=== PATIENT | female | born 1990 | race Caucasian/White ===

== ENCOUNTER → 2024-03-01 10:41 | Outpatient (REF) | payer BC, SELFPAY | LOC: PNTC 10:41 | PROVIDERS: ATTENDING PHYSICIAN Obstetrics & Gynecology | DX: O99.210 Obesity complicating pregnancy, unspecified trimester (principal) | CPT/HCPCS: 76805 ==

== ENCOUNTER → 2024-03-29 06:43 | Outpatient (REF) | payer BC, SELFPAY | LOC: PNTC 06:43 | PROVIDERS: ATTENDING PHYSICIAN Obstetrics & Gynecology | DX: O99.210 Obesity complicating pregnancy, unspecified trimester (principal) | CPT/HCPCS: 76811 ==

== ENCOUNTER → 2024-04-27 09:16 | Outpatient (REF) | payer BC, SELFPAY | LOC: PNTC 09:16 | PROVIDERS: ATTENDING PHYSICIAN Obstetrics & Gynecology | DX: O99.210 Obesity complicating pregnancy, unspecified trimester (principal) | CPT/HCPCS: 76816 ==

== ENCOUNTER → 2024-05-25 09:17 | Outpatient (REF) | payer BC, SELFPAY | LOC: PNTC 09:17 | PROVIDERS: ATTENDING PHYSICIAN Obstetrics & Gynecology | DX: O99.210 Obesity complicating pregnancy, unspecified trimester (principal) | CPT/HCPCS: 76816 ==

== ENCOUNTER → 2024-06-22 08:45 | Outpatient (REF) | payer BC, SELFPAY | LOC: PNTC 08:45 | PROVIDERS: ATTENDING PHYSICIAN Obstetrics & Gynecology | DX: O99.210 Obesity complicating pregnancy, unspecified trimester (principal) | CPT/HCPCS: 76816 ==

== ENCOUNTER → 2024-07-06 08:44 | Outpatient (REF) | payer BC, SELFPAY | LOC: PNTC 08:44 | PROVIDERS: ATTENDING PHYSICIAN Obstetrics & Gynecology | DX: O99.210 Obesity complicating pregnancy, unspecified trimester (principal) | CPT/HCPCS: 59025; 76815 ==

== ENCOUNTER → 2024-07-13 08:49 | Outpatient (REF) | payer BC, SELFPAY | LOC: PNTC 08:49 | PROVIDERS: ATTENDING PHYSICIAN Obstetrics & Gynecology | DX: O99.210 Obesity complicating pregnancy, unspecified trimester (principal) | CPT/HCPCS: 59025; 76815 ==

== ENCOUNTER → 2024-07-20 08:33 | Outpatient (REF) | payer BC, SELFPAY | LOC: PNTC 08:33 | PROVIDERS: ATTENDING PHYSICIAN Obstetrics & Gynecology | DX: O99.210 Obesity complicating pregnancy, unspecified trimester (principal) | CPT/HCPCS: 59025; 76816 ==

== ENCOUNTER → 2024-07-27 08:38 | Outpatient (REF) | payer BC, SELFPAY | LOC: PNTC 08:38 | PROVIDERS: ATTENDING PHYSICIAN Obstetrics & Gynecology | DX: O99.210 Obesity complicating pregnancy, unspecified trimester (principal) | CPT/HCPCS: 59025; 76815 ==

== ENCOUNTER → 2024-08-03 08:47 | Outpatient (REF) | payer BC, SELFPAY | LOC: PNTC 08:47 | PROVIDERS: ATTENDING PHYSICIAN Obstetrics & Gynecology | DX: O99.210 Obesity complicating pregnancy, unspecified trimester (principal) | CPT/HCPCS: 59025; 76815 ==

== ENCOUNTER → 2024-08-04 14:47 | Outpatient (REF) | payer BC, SELFPAY | LOC: PNTC 14:47 | PROVIDERS: ATTENDING PHYSICIAN Obstetrics & Gynecology | DX: O36.8120 Decreased fetal movements, second trimester, not applicable or unspecified (principal) | CPT/HCPCS: 59025 ==

== ENCOUNTER 2024-08-10 09:36 | Inpatient (IN) | payer BC, SELFPAY ==
[2024-08-10 10:04] VITALS: BP 139/81; BMI 44.9
[2024-08-10 11:49] LABS: % Basophils 0.4 % (0-2); % Immature Granulocytes 0.5 % (0-0.5); % Lymphocytes 25.2 % (20.5-51.1); % Monocytes 7.6 % (1.7-9.3); % Neutrophils 64.3 % (42.2-75.2); Absolute Eosinophils 0.2 10^3/uL (0-0.7); Absolute Immature Granulocytes 0.1 10^3/uL (0-0.05); Absolute Lymphocytes 2.6 10^3/uL (1.2-3.4); Absolute Monocytes 0.8 10^3/uL (0.1-0.6); Absolute Neutrophils 6.6 10^3/uL (1.4-6.5); Hematocrit 33.7 % (37.0-47.0); Mean Corp Hgb Conc. 32.6 g/dL (33.0-37.0); Mean Corpuscular Hgb 29.3 pg (27.0-31.0); Mean Corpuscular Volume 89.9 fL (81.0-99.0); Mean Platelet Volume 12.1 fL (7.4-10.4); Nucleated Red Blood Cells % 0 %; Platelet Count 224 10^3/uL (130-400); Red Blood Cell Count 3.75 10^6/uL (4.20-5.40); Red Cell Dist. Width 14.2 % (11.5-14.5); White Blood Cell Count 10.3 10^3/uL (4.8-10.8)
[2024-08-10] MEDS: CYTOTEC 25 MICROGRAM VAG (13:43)
[2024-08-10] MEDS: PITOCIN 30 UNITS/NSS 500 ML IV ×2 (18:38→19:52)
[2024-08-10] MEDS: XYLOCAINE-MPF 1% VIAL 30 ML INFIL (18:45)
[2024-08-10] MEDS: TRANEXAMIC ACID 100 IV (18:58)
[2024-08-10] MEDS: HEMABATE 250 MCG IM (19:00)
[2024-08-10 19:03] LABS: Cord ABG B.E. - POC -0.6 mmol/L; Cord ABG HCO3 - POC 25 mmol/L; Cord ABG O2 Sat % - POC 32.2 %; Cord ABG pCO2 - POC 44 mmHg; Cord ABG pH - POC 7.36; Cord ABG pO2 - POC 21 mmHg
[2024-08-10 19:09] LABS: Cord VBG B.E. - POC 0.4 mmol/L; Cord VBG HCO3 - POC 24 mmol/L; Cord VBG O2 Sat % - POC 45.2 %; Cord VBG pCO2 - POC 34 mmHg; Cord VBG pH - POC 7.45; Cord VBG pO2 - POC 24 mmHg
[2024-08-10] MEDS: MOTRIN 600 MG PO (20:02)
[2024-08-11] MEDS: MOTRIN 600 MG PO ×3 (02:25→15:55)
[2024-08-11 06:03] LABS: Hemoglobin 10.5 g/dL (12.0-16.0)
[2024-08-11] MEDS: PRENATAL PLUS 1 TABLET PO (08:28)
[2024-08-11] MEDS: FEOSOL 325 MG PO (08:46)
[2024-08-11 11:10] LABS: ALT (SGPT) 17 U/L (0-35); AST (SGOT) 28 U/L (14-36); Albumin 2.7 g/dl (3.5-5.0); Alkaline Phosphatase 141 U/L (38-126); Blood Urea Nitrogen 8 mg/dl (7-17); Carbon Dioxide 21 mmol/L (22-30); Chloride 107 mmol/L (98-107); Estimated Creatinine Clearance > 125 ml/min; Glucose 129 mg/dl (70-99); Potassium 3.7 mmol/L (3.5-5.1); Sodium 134 mmol/L (135-145); Total Bilirubin 0.6 mg/dl (0.2-1.3); Total Protein 5.4 g/dl (6.3-8.2); eGFR > 60.00
[2024-08-12] MEDS: MOTRIN 600 MG PO ×2 (00:12→07:38)
[2024-08-12] MEDS: FEOSOL 325 MG PO (07:38)
[2024-08-12] MEDS: PRENATAL PLUS 1 TABLET PO (07:38)
[2024-08-12 17:47] LABS: Syphilis/T. pallidum Ab Reflex Negative (Negative)
== END 2024-08-12 13:20 | disposition home or self-care (01) | DRG 807 ==
LOC: LDRP 09:36
PROVIDERS: Student in an Organized Health Care Education/Training Program; ADMITTING PHYSICIAN Obstetrics & Gynecology; ATTENDING PHYSICIAN Obstetrics & Gynecology
PROC: 10E0XZZ Delivery of Products of Conception, External Approach (ICD-10-PCS; 2024-08-10)
PROC: 0HQ9XZZ Repair Perineum Skin, External Approach (ICD-10-PCS; 2024-08-10)
PROC: 3E0P7VZ Introduction of Hormone into Female Reproductive, Via Natural or Artificial Opening (ICD-10-PCS; 2024-08-10)
DX: O41.03X0 Oligohydramnios, third trimester, not applicable or unspecified (principal); Z37.0 Single live birth; O75.89 Other specified complications of labor and delivery; O99.214 Obesity complicating childbirth; E66.813 Obesity, class 3; O70.0 First degree perineal laceration during delivery; O13.4 Gestational [pregnancy-induced] hypertension without significant proteinuria, complicating childbirth; Z3A.39 39 weeks gestation of pregnancy
CPT/HCPCS: 88307; 36415; 59025; 76815; 76820; 80053; 85014; 85018; 85025; 86780; 86850; 86900; 86901